=== PATIENT | female | born 1960 | race Caucasian/White ===

== ENCOUNTER 2022-09-02 12:27 | Emergency (ER) | payer OTHER, SELFPAY ==
[2022-09-02 12:50] VITALS: BP 135/89; PULSE 78; RESP 18; TEMP 36.7; O2SAT 100
--- NOTE | 2022-09-02 13:45 | ED.FEMALEGU ---
HPI - Female Genitourinary General Chief complaint: Urogenital-Female Stated complaint: Possible UTI Time Seen by Provider: 09/02/22 12:29 Source: patient Mode of arrival: ambulatory Limitations: no limitations History of Present Illness HPI Narrative: 61-year-old female presents to [facility] with complaints of urinary frequency, urgency, pain and burning for the past 3 to 4 days. Patient denies vaginal discharge, vaginal itching, concern for STDs, fever, flank pain or abdominal pain. Patient reports that she has had a few urinary tract infections in the past. MD elicited complaint: dysuria and UTI Onset (ago): day(s) (4) Vaginal discharge: none Vaginal bleeding: none Urinary symptoms: Dysuria, Urgency and Frequency Exacerbating factors: none Relieving factors: none Associated symptoms: denies other symptoms Related Data Home Medications Medication Instructions Recorded Confirmed dulaglutide 4.5 mg/0.5 mL 4.5 mg subcut WEEKLY 09/02/22 09/02/22 subcutaneous pen injector (Trulicity) liothyronine 25 mcg tablet 25 mcg PO DAILY 09/02/22 09/02/22 metformin 500 mg tablet,extended 500 mg PO BID 09/02/22 09/02/22 release 24 hr Allergies Allergy/AdvReac Type Severity Reaction Status Date / Time penicillin G AdvReac Mild Hives Verified 09/02/22 13:39 Penicillins AdvReac Mild Hives Verified 09/02/22 13:39 Sulfa (Sulfonamide AdvReac Mild Hives Verified 09/02/22 13:39 Antibiotics) Review of Systems Constitutional: Constitutional: Denies chills and Denies fatigue ENT: Denies dizziness Respiratory: Respiratory: Denies cough, Denies dyspnea and Denies wheezing Gastrointestinal: Gastrointestinal: Denies abdominal pain, Denies bloating, Denies diarrhea, Denies nausea and Denies vomiting Genitourinary: Genitourinary: Reports nocturia, Reports dysuria, Denies flank pain and Denies vaginal discharge Integumentary/Breasts: Skin/Breast: Denies rash Neurologic: Denies dizziness PMF Past Medical History Medical History (Updated 09/02/22 @ 13:50 by Christina Salvador APRN) Cholecystectomy planned Surgical History Surgical History (Updated 09/02/22 @ 13:48 by Christina Salvador APRN) History of partial hysterectomy Social History Social History (Updated 09/02/22 @ 13:48 by Christina Salvador, ESPINOZA) Smoking status: Never smoker Comments At time of signature, I agree with nursing past medical, surgical, social and family history. There is no relevant family history pertinent to the presenting complaint. Exam Const: General: healthy appearing Nutritional Appearance: well nourished Orientation/consciousness: patient oriented x3 Limitations: no limitations Neck: Neck: normal visual inspection Resp: Effort & Inspection: normal respiratory effort and not labored Auscultation: clear to auscultation bilaterally, no crackles, no rales and no rhonchi Cardio: Rate: regular rate Rhythm: regular rhythm Heart sounds: no murmurs GI: Inspection: non-distended GI Palp: Yes Soft to palpation, No Tenderness to palpation present (GI), No Guarding due to palpation present (GI) and No Rigid due to palpation Auscultation: normal bowel sounds : General: Yes bladder normal to palpation and Yes no CVA tenderness Back/Spine/Pelvis: Back: no CVA tenderness Skin: General skin exam: normal color Rashes: no rashes Wounds: no wounds Neuro: General: patient oriented x3 Speech: normal speech Gait exam (Neuro): Normal gait present Psych: Appearance: grossly normal Affect: normal affect Attitude: cooperative Course Course Level of Care: Express Care Visit Vital Signs Vital signs: Vital Signs Temperature 36.7 C 09/02/22 12:50 Pulse Rate 78 09/02/22 12:50 Respiratory Rate 18 09/02/22 12:50 Blood Pressure 135/89 09/02/22 12:50 Pulse Oximetry 100 09/02/22 12:50 Oxygen Delivery Room Air 09/02/22 12:50 Temperature 36.7 C 09/02/22 12:50 Pulse Rate 78 09/02/22 12:50 Respiratory Ra
== END 2022-09-02 13:53 | disposition home or self-care (01) ==
PROVIDERS: Emergency Provider Nurse Practitioner Family; PCP Nurse Practitioner Family
DX: N39.0 Urinary tract infection, site not specified (principal)
CPT/HCPCS: 81003; 87077; 87086; 87186; 99213; G0463

== ENCOUNTER → 2023-05-02 14:46 | Outpatient (CLI) | payer OTHER, SELFPAY ==
--- NOTE | ~2023-05-02 | MM_ITS ---
EXAMINATION: MM screening carrie BI w allan HISTORY: Screening TECHNIQUE: Craniocaudal and mediolateral oblique 3-D tomosynthesis images were obtained and synthetic 2-D images were generated. CAD analysis was submitted and interpreted. COMPARISON: Comparison to multiple prior studies sequentially, with oldest reviewed study dated 2012. BREAST PARENCHYMAL COMPOSITION: There are scattered areas of fibroglandular density. FINDINGS: There is a new mass centrally in the left breast, middle third. The right breast is stable without evidence for malignancy. IMPRESSION: 1. New left breast mass. 2. Additional mammographic views and possible breast ultrasound are recommended. BI-RADS Category 0: Incomplete: Needs additional imaging evaluation. Reviewed, dictated and finalized at location A. IMPRESSION: 1. New left breast mass. 2. Additional mammographic views and possible breast ultrasound are recommended . BI-RADS Category 0: Incomplete: Needs additional imaging evaluation.
--- NOTE | ~2023-05-02 | DEXA_ITS ---
Bone Density Report Name: ABRAHAN FRANCO Age: 62 Sex: Female Ethnicity: White Date of : 1960 Indication: osteopenia; height loss; prior fracture; hysterectomy; postmenopausal Referring Provider: Misty, Rhina Rudolph Study: Bone densitometry was performed. Exam Date: May 02, 2023 Accession number: [id number] Bone Density: Region BMD T-score Z-score Classification AP Spine (L1-L4) 0.807 -2.2 -0.7 Osteopenia Femoral Neck (Left) 0.637 -1.9 -0.6 Osteopenia Total Hip (Left) 0.779 -1.3 -0.3 Osteopenia Femoral Neck (Right) 0.653 -1.8 -0.4 Osteopenia Total Hip (Right) 0.789 -1.3 -0.2 Osteopenia Total Hip Mean 0.784 -1.3 -0.3 Osteopenia World Health Organization criteria for BMD impression classify patients as: Normal (T-score at or above -1.0), Osteopenia (T-score between -1.0 and -2.5), or Osteoporosis (T-score at or below -2.5). 10-year Fracture Risk(1): Major Osteoporotic Fracture 14% Hip Fracture 1.6% Reported Risk Factors: [place] (), Neck BMD=0.637, BMI=36.6, previous fracture (1) FRAX(R) Version 3.08. Fracture probability calculated for an untreated patient. Fracture probability may be lower if the patient has received treatment. Previous Exams: Region Exam Age BMD T-score BMD Change BMD Change Date g/cm2 vs Baseline vs Previous AP Spine(L1-L4) 05/02/2023 62 0.807 -2.2 -0.025* -0.025* 09/17/2017 56 0.832 -2.0 Total Hip(Left) 05/02/2023 62 0.779 -1.3 -0.055* -0.055* 09/17/2017 56 0.835 -0.9 Total Hip(Right) 05/02/2023 62 0.789 -1.3 -0.037* -0.037* 09/17/2017 56 0.826 -0.9 *Denotes significance at 95% confidence level, LSC for AP Spine = 0.022 g/cm2, LSC for Total Hip = 0.027 g/cm2 Clinical Information Provided by Patient: Has had a low trauma fracture Has used the following medications: Vitamin D Has the following medical conditions: Hysterectomy Patient maximum height was 69.0 Menopause Age: 37 No regular weight bearing exercise Drinks caffeinated beverages Onset of menses at age 14 Number of children 3 Impression: The patient has low bone mass, based on the Total Spine T-score. The patient has an estimated ten-year risk of hip fracture of 1.6% and an estimated ten-year risk of major fracture of 14%, based on the WHO FRAX algorithm. The patient has risk factors, including: previous fracture. The BMD for the AP Spine(L1-L4) decreased, changing by -0.025 sin
== END ==
PROVIDERS: PCP Nurse Practitioner Family; Visit Provider Nurse Practitioner Family
DX: Z12.31 Encounter for screening mammogram for malignant neoplasm of breast (principal); Z78.0 Asymptomatic menopausal state; M85.88 Other specified disorders of bone density and structure, other site; M85.852 Other specified disorders of bone density and structure, left thigh; M85.851 Other specified disorders of bone density and structure, right thigh; R92.8 Other abnormal and inconclusive findings on diagnostic imaging of breast
CPT/HCPCS: 77063; 77067; 77080

== ENCOUNTER → 2023-06-14 08:53 | Outpatient (CLI) | payer OTHER, SELFPAY ==
--- NOTE | ~2023-06-14 | MMUS_ITS ---
EXAMINATION: US breast LT limited, MM diagnostic carrie LT w allan HISTORY: Abnormal mammogram TECHNIQUE: Additional 3-D tomosynthesis images of the left breast were performed and synthetic 2-D im ages were generated. CAD analysis was submitted and interpreted. High resolution Limited left breast ultrasound was performed. COMPARISON: 05/02/2023 BREAST PARENCHYMAL COMPOSITION: Breast composed of scattered areas of fibroglandular density FINDINGS: MAMMOGRAPHIC FINDINGS: There is a persistent mass in the central aspect of the left breast approximately 5 cm posterior to t he nipple. There are no suspicious calcifications or architectural distortion to suggest malignancy. ULTRASOUND: Limited left breast ultrasound: At 1:00, 4 cm from the nipple, there is a 8 mm simple cyst correspond ing to the mammographic finding. No suspicious masses to suggest malignancy. IMPRESSION: 1. No evidence for malignancy in the left breast. Benign finding. 2. Routine yearly screening mammogram and regular clinical breast examination are recommended. BI-RADS Category 2: Benign finding(s). 2 Reviewed, dictated and finalized at location A. IMPRESSION: 1. No evidence for malignancy in the left breast. Benign finding. 2. Routine yearly screening mammogram and regular clinical breast examination a re recommended. BI-RADS Category 2: Benign finding(s). 2
== END ==
PROVIDERS: PCP Nurse Practitioner Family; Visit Provider Nurse Practitioner Family
DX: R92.8 Other abnormal and inconclusive findings on diagnostic imaging of breast (principal)
CPT/HCPCS: 76642; 77061; 77065; G0279

== ENCOUNTER 2024-11-02 14:03 | Outpatient (CLI) | payer OTHER, SELFPAY ==
--- NOTE | ~2024-11-02 | MM_ITS ---
EXAMINATION: MM screening carrie BI w allan HISTORY: Screening TECHNIQUE: Craniocaudal and mediolateral oblique 3-D tomosynthesis images were obtained and synthetic 2-D images were generated. CAD analysis was submitted and interpreted. COMPARISON: Comparison to multiple prior studies sequentially, with oldest reviewed study dated 05/2017. BREAST PARENCHYMAL COMPOSITION: Not dense: There are scattered areas of fibroglandular density. FINDINGS: There is developing focal asymmetry in the lower inner quadrant of the right breast, anteri or third. The left breast is stable without evidence for malignancy. IMPRESSION: 1. Developing focal asymmetry of the right breast. 2. Additional mammographic views and possible breast ultrasound are recommended. BI-RADS CATEGORY 0 - INCOMPLETE STUDY, NEED ADDITIONAL IMAGING EVALUATION. Reviewed, dictated and finalized at location B. [employer] IMPRESSION: 1. Developing focal asymmetry of the right breast. 2. Additional mammographic views and possible breast ultrasound are recommended . BI-RADS CATEGORY 0 - INCOMPLETE STUDY, NEED ADDITIONAL IMAGING EVALUATION.
== END 2024-11-02 14:04 | disposition home or self-care (01) ==
LOC: MICIMG 14:03
PROVIDERS: PCP Nurse Practitioner Family; Visit Provider Nurse Practitioner Family
DX: Z12.31 Encounter for screening mammogram for malignant neoplasm of breast (principal); N64.89 Other specified disorders of breast
CPT/HCPCS: 77063; 77067

== ENCOUNTER 2024-12-07 08:53 | Outpatient (CLI) | payer OTHER, SELFPAY ==
--- NOTE | ~2024-12-07 | MMUS_ITS ---
EXAMINATION: MM diagnostic carrie RT w allan, US breast RT limited HISTORY: Right breast mass TECHNIQUE: Additional 3-D tomosynthesis images of the right breast were performed and synthetic 2-D i mages were generated. CAD analysis was submitted and interpreted. High resolution limited right breas t ultrasound was performed. COMPARISON: 11/02/2024, 05/14/2023 BREAST PARENCHYMAL COMPOSITION:Not Dense. There are scattered areas of fibroglandular density. FINDINGS: MAMMOGRAPHIC FINDINGS: Spot compression views demonstrate persistent circumscribed mass at the lower, inner right subareolar region measuring approximately 1 cm in diameter. Questionable fatty hilum. ULTRASOUND: At the 2:00 right breast position, 2 cm from the nipple, there is a 1.4 x 1.3 cm hypoechoic mass. Sug gestion of possible fatty hilum. Lesion is wider than tall. IMPRESSION: Suspected benign lymph node at the lower, inner right subareolar region. Six-month follow-up exam re commended to assure stability. BI-RADS category 3, probably benign findings. Reviewed, dictated and finalized at location M. MASTER IMPRESSION: Suspected benign lymph node at the lower, inner right subareolar region. Six-m ont follow-up exam recommended to assure stability. BI-RADS category 3, probably benign findings. IMPRESSION: Suspected benign lymph node at the lower, inner right subareolar region. Six-m onth follow-up exam recommended to assure stability. BI-RADS category 3, probably benign findings.
== END 2024-12-07 08:54 | disposition home or self-care (01) ==
LOC: MICIMG 08:53
PROVIDERS: PCP Nurse Practitioner Family; Visit Provider Nurse Practitioner Family
DX: R92.8 Other abnormal and inconclusive findings on diagnostic imaging of breast (principal)
CPT/HCPCS: 76642; 77061; 77065; G0279

== ENCOUNTER 2025-06-07 09:23 | Outpatient (CLI) | payer OTHER, SELFPAY ==
--- NOTE | ~2025-06-07 | MMUS_ITS ---
EXAMINATION: MM diagnostic carrie RT w allan, US breast RT limited HISTORY: Follow-up right breast asymmetry TECHNIQUE: Additional 3-D tomosynthesis images of the right breast were performed and synthetic 2-D i mages were generated. CAD analysis was submitted and interpreted. High resolution Limited right breas t ultrasound was performed. COMPARISON: Comparison to multiple prior studies sequentially, with oldest reviewed study dated 05/2017. BREAST PARENCHYMAL COMPOSITION: Not dense: There are scattered areas of fibroglandular density. FINDINGS: MAMMOGRAPHIC FINDINGS: There is a mass in the lower inner quadrant of the right breast, anterior third obscured partially by fibroglandular tissue. There are no suspicious calcifications or architectural distortion. ULTRASOUND: Limited right breast ultrasound: At 3:00, 1 cm from the nipple there is an irregular shaped hypoechoi c mass with internal echogenic areas measuring 8 x 5 x 8 mm. No internal vascularity. IMPRESSION: 1. Irregular shaped hypoechoic right breast mass at 3:00, 1 cm from the nipple measuring 8 mm. This c orresponds to the mammographic finding. 2. Ultrasound-guided right breast biopsy recommended. BI-RADS category 4, suspicious findings. Reviewed, dictated and finalized at location B. IMPRESSION: 1. Irregular shaped hypoechoic right breast mass at 3:00, 1 cm from the nipple measuring 8 mm. This corresponds to the mammographic finding. 2. Ultrasound-guided right breast biopsy recommended. BI-RADS category 4, suspicious findings.
== END 2025-06-07 09:24 | disposition home or self-care (01) ==
LOC: MICIMG 09:23
PROVIDERS: PCP Nurse Practitioner Family; Visit Provider Nurse Practitioner Family
DX: R92.8 Other abnormal and inconclusive findings on diagnostic imaging of breast (principal); N63.14 Unspecified lump in the right breast, lower inner quadrant
CPT/HCPCS: 76642; 77061; 77065; G0279

== ENCOUNTER 2025-06-18 07:09 | Outpatient (CLI) | payer OTHER, SELFPAY ==
--- NOTE | ~2025-06-18 | MMUS_ITS ---
PROCEDURE: US breast biopsy RT w image, MM post biopsy diagnostic RT CLINICAL HISTORY: 54-year-old female with suspicious irregular shaped hypoechoic right breast mass at 3:00, 1 cm from the nipple, presents for ultrasound-guided core needle biopsy procedure. COMPARISON: 06/07/2025 Following informed consent including risks, benefits, and possible complications, the patient was bro ught to the ultrasound suite. A time-out procedure was performed. A preliminary ultrasound of the ri t breast was performed, redemonstrating the targeted hypoechoic mass at 3:00, 1 cm from the nipple. The patient was prepped and draped in the usual sterile fashion. 1% lidocaine was instilled into the subcutaneous tissues. 1% lidocaine with epinephrine was injected into the deep tissues just inferior to the lesion. Approximately 15cc lidocaine was administered. A small skin leticia was made. Multiple co re samples were obtained with a 13-gauge vacuum assisted biopsy needle. A post biopsy metal marker wa s placed at the biopsy site. Postprocedural mammogram of the right breast in craniocaudal and mediolateral projections reveal the post biopsy metal marker in good position. The patient tolerated the procedure well and was without i mmediate postprocedural complications. IMPRESSION: Successful ultrasound guided biopsy of right breast mass. A post biopsy metal marker was placed at the biopsy site, which is seen on postprocedural mammogram. The patient tolerated the procedure well without immediate postprocedure complications. The patient w as given postprocedural instructions and sent home in stable condition. Reviewed, dictated and finalized at location B. IMPRESSION: Successful ultrasound guided biopsy of right breast mass. A post bi opsy metal marker was placed at the biopsy site, which is seen on postprocedura l mammogram. The patient tolerated the procedure well without immediate postprocedure compli cations. The patient was given postprocedural instructions and sent home in sta ble condition.
--- OUTSIDE RECORDS SUMMARY | 2025-06-18 07:13 | XMS_ITS | Data Portability ---
Author Organization [facility] [employer], Main Office Address [address] [place] [address] Assessment No assessment recorded. Plan of Treatment Reminders Order Date Submit Date Provider Last Modified By Organization Details Last Modified Time Details Appointments None recorded. Lab lipid panel, serum 2022 023 [email or web address] [facility], [address], [address], [place], [address], 3 10:16:04 TSH, ultra-sensi tive, serum 2022 023 [email or web address] [facility], [address], [address], [place], [address], 3 10:15:37 CBC w/ auto diff 2022 023 [email or web address] [facility], [address], [address], [place], [address], 3 09:01:17 noninvasive colorectal cancer DNA + occult blood screening, QL, stool 2022 023 [email or web address] [facility] (Cologuard Orders Only), [address], [address], [place], [address], 3 10:16:39 HbA1c (hemoglobin A1c), blood 2022 023 [email or web address] [facility], 2022 [address], [address], [place], [address], 3 10:14:27 CMP, serum or plasma 2022 023 [email or web address] [facility], 20[address], [address], [place], [address], 3 10:15:10 Referral None recorded. Procedures None recorded. Surgeries None recorded. Imaging MAMMO, screening, digital, bilateral 2022 023 [email or web address] [facility], [address], [address], [place], [address], 3 16:06:49 DEXA 2022 023 [email or web address] [facility], [address], [address], [place], [address], 3 10:59:04 Medication Orders scopolamine 1 mg over 3 days transdermal patch 2022 023 [id number], [address] [facility], [place], [place], [id number], 11:05:36 Patient TargetsNo targets recorded. Patient Instructions Encounter Date Encounter Id Patient Instructions Last Modified By Organization Details Last Modified Time 02/15/2023 [id number] FU in 1 year for wellness after 02/17/24 [email or web address] Not available 02/15/2023 11:21:51 Reason for Referral None Reported. Results Created Date Observation Date Name Description Value Unit Range Abnormal Flag Note LastModifiedBy Organization Detail LastModifiedTime 04/18/20 23 04/18/2023 COLOG UARD cologuard result reportable NEGATI VE negati ve NEGAT ROBERTO TEST RESUL T. A negat roberto Colog uard resul t indic ates a low likel ihood that a color ectal cance r (CRC) or advan pawel adeno ma (veronica omato us polyp s with more advan pawel pre-m align ant featu res) is prese nt. The chanc e that a perso n with a negat roberto Colog uard test has a color ectal cance r is less than 1 in 1500 (nega tive predi ctive value >99.9 %) or has an advan pawel adeno ma is less than 5.3% (nega tive predi ctive value 94.7% ). These data are based on a prosp ectiv e cross -sect ional study of 10,00 0 indiv idual s at [place] [facility] risk for color ectal cance r who were scree elio with both Colog uard and colon oscop y. (Impe nolberto Lima et al, N Engl J Med 2014; 370(1 4):12 86-12 97) The js l value (refe rence range ) for this assay is negat roberto. COLOG UARD RE-SC REEYOLA CALL RECOM MENDA TION: Perio dic color ectal cance r scree mary is an impor tant part of preve ntive healt hcare for asymp tomat ic indiv idual s at [place] risk for color ectal cance r. Follo wing a negat roberto Colog uard resul t, the Ameri can Cance r Socie ty and U.S. Multi -Soci ety Task Force scree mary guide lines recom mend a Colog uard re-sc jessica call inter maricarmen of 3 years . Refer ences : Ameri can Cance r Socie ty Guide line for Color ectal Cance r Scree mary: https ://miko w.can cer.o rg/ca ncer/ colon -rect al-ca ncer/ detec tion- diagn osis- stagi ng/ac s-rec ommen datio ns.ht ml.; Alan CUNNINGHAM, Massimo diane CR, Cristino McmanusK, Color ectal Cance r Scree mary: Recom menda tions for Physi cians and Patie nts from the U.S. Multi -Soci ety Task Force on Color ectal Cance r Scree mary , Parveen cole rolog y 2017; 112:1 016-1 030. TEST DESCR IPTIO N: [place] site algor ithmi c eliud sis of stool DNA-b ioole voss with hemog lobin immun oassa y. Quant itati ve value s of indiv idual bioma rkers are not repor table and are not assoc iated with ind idual bioma rker resul t refer ence range s. Colog uard is inten ded for color ectal cance r scree mary of adult s of eithe r sex, 45 years or older , who are at [facility] for color ectal cance r (CRC) . Colog uard has been appro joshua for use by the U.[place]. FDA. The perfo rmanc e of Colog uard was estab lishe d in a cross secti onal study of [facility] adult s aged 50-84 . Colog uard perfo rmanc e in patie nts ages 45 to 49 years was estim ated by sub-g roup eliud sis of near- age group s. Colon oscop ies perfo rmed for a posit roberto resul t may find as the most clini ruba signi fican t lesio n: color ectal cance r [4.0% ], advan pawel adeno ma (incl uding sessi le meliton lisa polyp s great er than or equal to 1cm diame ter) [20%] or non- advan pawel adeno ma [31%] ; or no color ectal neopl irish [45%] . These estim ates are deriv ed from a prosp ectiv e cross -sect ional scree mary study of 10,00 0 indiv idual s at [facility] risk for color ectal cance r who were scree elio with both Colog uard and colon oscop y. (Gurdeep Swift al, N Engl J Med 2014; 370(1 4):12 86-12 97.) Colog uard may produ ce a false negat roberto or false posit roberto resul t (no color ectal cance r or preca ncero us polyp prese nt at colon oscop y follo w up). A negat roberto Colog uard test resul t does not guara ntee the absen ce of CRC or advan pawel adeno ma (pre- cance r). The curre nt Colog uard scree mary inter maricarmen is every 3 years . (Amer ican Cance r Socie ty and U.S. Multi -Soci ety Task Force ). Colog uard perfo rmanc e data in a 10,00 0 patie nt pivot al study using colon oscop y as the refer ence metho d can be acces sed at the [facility]ollo wing locat ion: www.e xactl abs.c om/re sults . Addit ional descr iptio n of the Colog uard test proce ss, warni ngs and preca ution s can be found at www.c ologu davey.c om. Not Available [facility] (Cologuard Orders Only) [address], [place], [address], 04/27/2023 11:20:51 05/02/20 23 05/02/2023 MAMMO , scree mary, digit al, bilat eral No observ ation record ed. [address], [place], [address], 05/03/2023 15:56:22 05/03/20 23 05/02/2023 DEXA No observ ation record ed. [address] [facility] [address] [facility] [address], [place], [address], 05/08/2023 15:07:11 06/14/20 23 06/14/2023 US, breas t No observ ation record ed. [address] [facility] [address] [facility] [address], [place], [address], 06/14/2023 11:54:13 Result Notes None recorded. Problems Name Problem SNOMED Code Status Onset Date Resolution Date Notes Provider Name and Address Organization Details Recorded Time Urinary incontinenc e 766156596 Active Not Available [facility] 3 06:00:30 Pain of joint of wrist 041636711 Active Not Available [employer] 3 06:00:30 Pruritus of vagina 72795354 Active Not Available [facility] 3 06:00:31 Motion sickness 74268674 Active Not Available [facility] 3 06:00:31 Obesity 732038860 Active Not Available [facility] 3 06:00:31 Acute urinary tract infection 549704248 Active Not Available [facility] 3 06:00:31 Candidiasis of vagina 79899020 Active Not Available [facility] 3 06:00:31 Bilateral cataracts 79498830 Active Not Available [facility] 3 06:00:32 Urinary tract infectious disease 68213709 Active 2016 Not Available [facility] 3 06:00:31 Lichen planus 3570550 Active 2016 Not Available [facility] 3 06:00:31 Postmenopau [place] 29433246 Active 2016 Not Available [facility] 3 06:00:31 Body odor 51693595 Active 2016 Not Available [facility] 3 06:00:31 Burning sensation 55884633 Active 2016 Not Available [facility] 3 06:00:31 Pain in toe 303144402 Active 2018 Not Available [facility] 3 06:00:31 Screening for malignant neoplasm of breast Active 2020 Not Available [facility] 3 06:00:30 Screening for malignant neoplasm of colon Active 2020 Not Available [facility] 3 06:00:30 Seizure 15628634 Active 2020 Stress related Not Available [facility] 3 06:00:32 Pain in left arm 210819794 Active 2020 Not Available [facility] 3 06:00:31 Mammography abnormal 566475588 Active 2022 Rhina Jay NP [address] [address], [place], [address] , [facility] 3 18:36:55 Problem Notes None recorded. Procedures Surgical History Date Name Laterality Status Provider Name and Address Organization Details Recorded Time 05/02/20 23 Most Recent Bone Density completed Rhina Jay NP [address], [place], [address], [employer] 05/03/2023 17:06:03 Cholecystectomy completed Not Available [facility] 01/23/2023 05:54:21 procedure on urinary bladder completed Not Available [facility] 01/23/2023 05:54:21 Ankle Surgery completed Not Available [facility] 01/23/2023 05:54:21 Hysterectomy, Partial completed Not Available [facility] 01/23/2023 05:54:21 Tonsillectomy completed Not Available [facility] 01/23/2023 05:54:21 colonoscopy completed Rhina Jay NP [address], [address], [place], [address], [employer] 04/30/2023 19:17:14 Imaging Results None recorded. Procedure Notes None recorded. Medical Equipment None Reported. Allergies Allergen ID Allergen Name Allergen Category Reaction Reaction Severity Criticality Documentation Date Start Date Code Code System Note Provider Name and Address Organization Details Recorded Time 85004 Substance with sulfonami de structure and antibacte rial mechanism of action (substanc e) medicatio n rash mild Not available 01/23/2023 68588 8003 SNOMED Not Available [facility] 3 06:06:59 62281 Product containin g penicilli n (product) medicatio n Not available Not available Not available 01/23/2023 06023 8001 SNOMED as infan t Not Available [facility] 06:06:59 Medications Name Sig Start Date Stop Date Status Note LastModified by Organization Details LastModified Time cyclobenz aprine 10 mg tablet Take 1 tablet 3 times a day by oral route as needed. active Burning sensatio n of right thigh Not Available Not Available Not Available terbinafi ne HCl 1 % topical cream APPLY TOPICALL Y TO THE AFFECTED AND SURROUND ING AREAS OF SKIN ONCE DAILY 02/15 completed Not Available Not Available Not Available nystatin 100,000 unit/mL oral suspensio n 10/02 completed Not Available Not Available Not Available azithromy jami 250 mg tablet TAKE DIRECTED 02/15 completed Not Available Not Available Not Available Lidocaine Viscous 2 % mucosal solution 10/02 completed Not Available Not Available Not Available fluconazo le 150 mg tablet Take 1 po today, then repeat dose in 3 days. active Not Available Not Available No t Available liothyron ine 25 mcg tablet Take 3 tablets every day by oral route for [address] Olga yañez Not Available Not Available Not Available hydrocodo ne 5 mg-acetam inophen 325 mg tablet 04/10 completed Not Available Not Available Not Available metronida zole 0.75 % (37.5 mg/5 gram) vaginal gel Insert 1 applicat orful every day by vaginal route at bedtime for 5 days. active Not Available Not Available No t Available Medrol (Zak) 4 mg tablets in a dose pack Use as directed 02/15 completed Not Available Not Available Not Available prednison e 20 mg tablet Take 1 tablet every day by oral route for 7 days. active Not Available Not Available No t Available phentermi ne 37.5 mg tablet Take 1 tablet every day by oral route. 02/15 completed 5 days on/2 days off Not Available Not Available Not Available acetamino phen 300 mg-codein e 30 mg tablet active Not Available Not Available Not Available ciproflox acin 250 mg tablet Take 1 tablet every 12 hours by oral route for 5 days. active Not Available Not Available No t Available phendimet razine tartrate 35 mg tablet Take 1 tablet every day by oral route for [address] OLGA YAÑEZ PRESCRIB ES Not Available Not Available Not Available phendimet razine tartrate ER 105 mg capsule,e xtended release Take 1 capsule every day by oral route for [address] OLGA YAÑEZ PRESCRIB ES Not Available Not Available Not Available Cipro 500 mg tablet Take 1 tablet every 12 hours by oral route. active Not Available Not Available No t Available nitrofura ntoin macrocrys ras 100 mg capsule Take 1 capsule every 6 hours by oral route with meals for 7 days. 09/22 completed Not Available Not Available Not Available chromium picolinat e 200 mcg tablet Take by oral route. [address] Olga yañez for weight loss Not Available Not Available Not Available ergocalci ferol (vitamin D2) 1,250 mcg (50,000 unit) capsule one by mouth weekly 11/26 completed Not Available Not Available Not Available levofloxa jami 750 mg tablet Take 1 tablet every day by oral route. active Not Available Not Available No t Available scopolami ne 1 mg over 3 days transderm al patch APPLY 1 PATCH TOPICALL Y TO THE SKIN EVERY 72 HOURS DIRECTED active Not Available Not Available No t Available metformin ER 500 mg tablet,ex tended release 24 hr 1 tab po bid active Dr. Olga yañez Not Available Not Available Not Available doxycycli ne hyclate 100 mg tablet TAKE 1 TABLET BY MOUTH TWICE DAILY FOR 20 DAYS 02/15 completed Not Available Not Available Not Available tobramyci n 0.3 %-dexamet hasone 0.1 % eye drops,lucio pension SHAKE LQ AND INT 1 GTT IN OD FOUR TIMES DAILY. START GTS AFTER SURGERY 07/20 completed Not Available Not Available Not Available berberine -herbal comb no.18 capsule Take by oral route. 02/[address] Olga yañez in [place] for marely loss Not Available Not Available Not Available nitrofura ntoin monohydra te/macroc rystals 100 mg capsule TAKE 1 CAPSULE BY MOUTH EVERY 12 HOURS WITH FOOD FOR 7 DAYS 02/15 completed Not Available Not Available Not Available Durezol 0.05 % eye drops active Not Available Not Available No t Available Besivance 0.6 % eye drops,lucio pension active Not Available Not Available Not Available B12 2020 active x3 weekly Not Available Not Available Not Available Janumet XR 50 mg-1,000 mg tablet,ex tended release Take 2 tablets every day by oral route for 30 days. active Not Available Not Available No t Available Prolensa 0.07 % eye drops active Not Available Not Available No t Available Tanzeum 50 mg/0.5 mL subcutane ous pen injector INJECT UNDER THE SKIN ONCE WEEKLY 08/20 completed Not Available Not Available Not Available Tanzeum 30 mg/0.5 mL subcutane ous pen injector active Not Available Not Available Not Available Trulicity 1.5 mg/0.5 mL subcutane ous pen injector 07/20 completed Not Available Not Available Not Available Trulicity 3 mg/0.5 mL subcutane ous pen injector 07/20 completed Not Available Not Available Not Available Trulicity 4.5 mg/0.5 mL subcutane ous pen injector 02/15 completed Not Available Not Available Not Available Mounjaro 10 mg/0.5 mL subcutane ous pen injector INJECT 10 MG UNDER THE SKIN EVERY WEEK active Dr. Olga yañez. Not Available Not Available Not Available Vitals Date Recorded Body height Body mass index (BMI) Body weight Body temperature Respiratory rate Oxygen saturation Oxygen saturation in Arterial blood by Pulse oximetry Heart rate Systolic And Diastolic Provider Name and Address Organization Details Last Updated DateTime 3 170.18 cm 38.4 kg/m2 011108. 58 g 97 [degF] 16 /min 98 % 98 % 78 /min 128/80 mm[Hg] Rhina Baumann RN [place] [facility] [employer] [facility] 3 10:34:15 Date Recorded Body mass index (BMI) Body height Oxygen saturation Oxygen saturation in Arterial blood by Pulse oximetry Heart rate Body temperature Body weight Systolic And Diastolic Provider Name and Address Organization Details Last Updated DateTime 1 37.2 kg/m2 170.18 cm 96 % 96 % 84 /min 98.4 [degF] 093970. 19 g 130/80 mm[Hg] Not Available [facility] 3 05:58:17 Date Recorded Body mass index (BMI) Body height Oxygen saturation Oxygen saturation in Arterial blood by Pulse oximetry Heart rate Body temperature Body weight Systolic And Diastolic Provider Name and Address Organization Details Last Updated DateTime 1 37.1 kg/m2 170.18 cm 97 % 97 % 125 /min 97.9 [degF] 538577. 39 g 118/76 mm[Hg] Not Available [facility] 3 05:58:17 Social History Question Answer Notes LastModified by Organizat ion Details LastModified Time Tobacco Smoking Status Never Smoker Not Available [facility] 01/23/2023 05:54:07 Do You Have An Advance Directive? No Information not available 02/15/2023 Is Blood Transfusion Acceptable In An Emergency? Yes Information not available 02/15/2023 What Is Your Level Of Caffeine Consumption? Moderate [id number] Information not available 01/23/2023 In The 14 Days Before Symptom Onset, Have You Had Close Contact With A Laboratory-confir med COVID-19 While That Case Was Ill? No [id number] Information not available 01/23/2023 In The 14 Days Before Symptom Onset, Have You Had Close Contact With A Person Who Is Under Investigation For COVID-19 While That Person Was Ill? No MIGRATION.[id number] 8136 Information not available 01/23/2023 What Type Of Diet Are You Following? REGULAR Low Carb MIGRATION.116926 1157 Information not available 01/23/2023 Have There Been Any Changes To Your Family Or Social Situation? No MIGRATION.487686 9223 Information not available 01/23/2023 Do You Use Insect Repellent Routinely? Yes MIGRATION.010749 9666 Information not available 01/23/2023 Do You Have A Medical Power Of Commercial Real Estate Appraiser? No Information not available 02/15/2023 How Many Children Do You Have? 2 Information not available 02/15/2023 Have You Ever Been Counseled For Unhealthy Alcohol Use? No MIGRATION.042249 5911 Information not available 01/23/2023 Do You Have Any Pets? No MIGRATION.366341 5368 Information not available 01/23/2023 What Is Your Relationship Status? MIGRATION.164171 5902 Information not available 01/23/2023 Do You Use Your Seat Belt Or Car Seat Routinely? Yes MIGRATION.043885 2408 Information not available 01/23/2023 Do You Have Smoke And Carbon Monoxide Detectors In Your Home? Yes MIGRATION.084725 0074 Information not available 01/23/2023 Are There Any Smokers In Your House? No MIGRATION.715691 0973 Information not available 01/23/2023 Do You Participate In Social Media? Yes MIGRATION.131723 9784 Information not available 01/23/2023 Do You Use Sunscreen Routinely? Yes MIGRATION.917019 2657 Information not available 01/23/2023 Has Tobacco Cessation Counseling Been Provided? No MIGRATION.664165 2368 Information not available 01/23/2023 Have You Recently Traveled Abroad? No MIGRATION.221004 1921 Information not available 01/23/2023 Do You Have Any Dietary Restrictions? No MIGRATION.355375 4758 Information not available 01/23/2023 Sex: Unknown Functional Status Question Answer Note LastModified by Organizat ion Details LastModified Time Do you use any illicit or recreational drugs? No MIGRATION.4281335 026 Information not available 01/23/2023 Do you or have you ever used any other forms of tobacco or nicotine? No MIGRATION.2194339 026 Information not available 01/23/2023 What is your level of alcohol consumption? Occasional MIGRATION.0583175 026 Information not available 01/23/2023 What is your occupation? Retired MIGRATION.9679336 026 Information not available 01/23/2023 What is your exercise level? None MIGRATION.3882737 026 Information not available 01/23/2023 Mental Status Question Answer Note LastModified by Organizat ion Details LastModified Time Do you feel stressed (tense, restless, nervous, or anxious, or unable to sleep at night)? [id number] MIGRATION.[id number] 6 Information not available 01/23/2023 Family History Relationship Description Onset Age of this Age Resolved Age Notes LastModified by Organization Details LastModified Time Mother Rheumatoid arthritis MIGRATION.[id number] Not available 01/23/2023 05:54:23 Father Malignant neoplasm of brain MIGRATION.937 [id number] Not available 01/23/2023 05:54:23 Father Malignant neoplasm of lung MIGRATION.425 [id number] Not available 01/23/2023 05:54:23 Medical History No medical history recorded. Gynecological History Statement/Question Response How many live births 3 If Post Menopausal, Age at Menopause 56 Date of Last Mammogram 05/02/2023 Date of Last Colonoscopy Most Recent Bone Density 05/02/2023 Sexually Active? N Most Recent Mammogram Obstetrics History GPAL:G 3 P 0 0 0 0 Immunizations Vaccine Type Date Status Note Provider Nam e and Address Organization Details Recorded Time COVID-19, mRNA, LNP-S, PF, 100 mcg/0.5mL dose or 50 mcg/0.25mL dose 1 completed Not Available [facility] 01/23/2023 06:06:48 Influenza, split virus, trivalent, preservative 5 completed Not Available [facility] 01/23/2023 06:06:48 Influenza, split virus, quadrivalent, PF 1 completed Not Available [facility] 01/23/2023 06:06:48 Tdap 7 completed Not Available [facility] 01/23/2023 06:06:48 Influenza, split virus, quadrivalent, PF 9 completed Not Available [facility] 01/23/2023 06:06:48 Past Encounters Encounter ID Performer Location Encounter Start Date Encounter Closed Date Diagnosis/Indication Diagnosis SNOMED-CT Code Diagnosis ICD10 Code Diagnosis Note [id number] Isidoro Cooley MD [address] [address] 07/20/2021 00:00:00 07/20/2021 11:55:05 [id number] Isidoro Cooley MD [address] [address] 10/03/2021 00:00:00 10/03/2021 18:53:42 [id number] Rhina Jay NP [address] [address] 02/15/2023 10:11:02 02/15/2023 11:36:42 Adult health examination 035254194 Z00.00 Encouraged well balanced meals, active lifestyle, and routine vision and dental appts. Anemia screening 2161199 07 Z13.0 Diabetes m ellitus screening 784119248 Z13.1 Thyroid di sorder screening 147977622 Z13.29 Hyperlipid emia screening 683184890 Z13.220 Screening mammography of bilateral breasts 5312162220 04627 Z12.31 Postmenopausal state 764 71085 Z78.0 Screening for malignant neoplasm of colon 568733494 Z12.11 Motion sickness 72696153 T75.3XXA scopolamin e patch. Health Concerns Section Related Observation LastModified by Organization Detai ls LastModified Time None Recorded Concern Status LastModified by Organization Details LastModified Time None Recorded Advance Directives Directive N: Payers Insurance Date Sequence Insurance Name Policy Number Policy Arechiga Covered Member ID Arechiga Member ID Guarantor Name 06/21/2023 1 R [id number] Jen Marrufo [id number] Jen Marrufo Notes Date Note Type Note Provider Name and Address Organization Details Recorded Time 02/15/2023 text/html Here for wellness visit. Has been seeing Dr. Hill. Has been on weight loss meds and getting mounjaro and metformin though him. States she is on savings card for the mounjaro. Overdue for mammogram, labs, colonoscopy. Had hysterectomy and only ovaries still. Rhina Jay NP [address] [employer], [facility] [address], [place], [address], [facility] 02/15/2023 11:22:13 OBGyn Episode No OBEpisode recorded.
--- NOTE | 2025-06-18 08:36 | S_PTH ---
PATIENT: Jen Marrufo LOC: [facility] U#:[id number] AGE/SX: 64/F ROOM: RE06/18/[address]: Rhina Jay APRN : 1960 BED: DIS: 06/18/2025 SPEC #: [id number] RECD: 06/18/25 11:02 STATUS: SHAINA REYesi #: [id number] KARLO: 06/18/25 08:[address]: Rhina Jay DEPT: [facility] Surgical RECD BY: Ai De La Cruz Tissues: A - Breast Biopsy Procedures: Hematoxylin and Eosin Stain Gross and Microscopic Level 4
== END 2025-06-18 07:10 | disposition home or self-care (01) ==
PROVIDERS: PCP Nurse Practitioner Family; Visit Provider Nurse Practitioner Family
DX: R92.8 Other abnormal and inconclusive findings on diagnostic imaging of breast (principal)
CPT/HCPCS: 19083; 77065; 88305; A4648